=== PATIENT | male | born 1950 | race Hispanic/Latino ===

== ENCOUNTER 2025-02-20 08:47 | Day surgery (SDC) | payer OTHER ==
[2025-02-20 09:07] LABS: #Basophils 0.06 10x3/uL (0.0-0.2); #Eosinophils 0.31 10x3/uL (0.0-0.7); #Monocytes 0.78 10x3/uL (0.11-0.59); #Neutrophils 4.23 10x3/uL (1.40-6.50); %Basophils 0.9 % (0.0-1.0); %Eosinophils 4.7 % (0.0-10.0); %Lymphocytes 18.2 % (21.0-51.0); %Monocytes 11.8 % (0.0-10.0); %Neutrophils 64.1 % (42.0-75.0); Hematocrit 36.7 % (42.0-52.0); Hemoglobin 11.2 g/dL (14.0-18.0); Mean Corpuscular Hemoglobin 26.9 pg (27.0-31.0); Mean Corpuscular Volume 88.0 fL (78.0-98.0); Platelet Count 239 10x3/uL (130-400); Red Blood Cell (RBC) Count 4.17 mill/uL (4.70-6.10); White Blood Cell (WBC) Count 6.60 10x3/uL (4.8-10.8)
[2025-02-20 09:29] LABS: ALT (SGPT) 10 U/L (Less than 45); AST (SGOT) 24 U/L (11-34); Albumin 3.3 g/dL (3.1-4.5); Alkaline Phosphatase 84 U/L (40-110); Anion Gap 11 mmol/L (10-20); BUN (Urea Nitrogen) 19 mg/dL (8.4-25.7); Bilirubin, Total 0.5 mg/dL (0.3-1.2); Calc. Creatinine Clearance 0 mL/min (70-130); Calcium 8.7 mg/dL (7.8-10.44); Carbon Dioxide 25 mmol/L (23-31); Chloride 107 mmol/L (98-107); Globulin 3.5 g/dL (2.4-3.5); Glucose 99 mg/dL (83-110); Potassium 4.4 mmol/L (3.5-5.1); Sodium 139 mmol/L (136-145)
[2025-02-20 09:34] LABS: INR-International Normal Ratio 1.2; PTT 36.7 sec (22.9-36.1); Prothrombin Time 14.8 sec (12.0-14.7)
[2025-02-20 11:02] VITALS: BP 142/81; TEMP 98.7
[2025-02-20] MEDS ORDERED: Ondansetron PF 4 MG/2 ML Vial ONE (11:53)
[2025-02-20] MEDS ORDERED: FLU (Fluad Triv) 25-26 (65UP)PF 45 MCG/0.5 ML Syringe IM ONE (14:00)
== END 2025-02-20 12:40 | disposition home or self-care (01) ==
LOC: CT 08:47
PROVIDERS: ATTEND Internal Medicine Hematology & Oncology
DX: C24.8 Malignant neoplasm of overlapping sites of biliary tract (principal); Z53.9 Procedure and treatment not carried out, unspecified reason; I10 Essential (primary) hypertension; I48.91 Unspecified atrial fibrillation; F17.200 Nicotine dependence, unspecified, uncomplicated; Z86.73 Personal history of transient ischemic attack (TIA), and cerebral infarction without residual deficits; Z79.01 Long term (current) use of anticoagulants; Z79.899 Other long term (current) drug therapy
CPT/HCPCS: 36000; 36415; 74150; 80053; 85025; 85610; 85730; J2250; J2405; J3010